=== PATIENT | female | born 1970 | race Caucasian/White ===

== ENCOUNTER → 2016-08-17 | Outpatient (CLI) | payer BC ==
[~2016-08-17] MED LIST: ACET-1311 PO
[2016-08-17 19:14] LABS: FERRITIN 117.1 ng/ml (8.0-388.0)
== END | disposition home or self-care (01) ==
LOC: C.LAB 16:42
DX: K90.9 Intestinal malabsorption, unspecified (principal)

== ENCOUNTER → 2017-04-03 | Outpatient (CLI) | payer BC ==
--- NOTE | 2017-04-04 08:12 | MAMMOGRAPHY REPORT ---
BILATERAL DIGITAL SCREENING MAMMOGRAM TOMOSYNTHESIS WITH CAD: 04/03/2017 CLINICAL HISTORY: Routine screening. Patient has no complaints. TECHNIQUE: Breast tomosynthesis in addition to standard 2D mammography was performed. Current study was also evaluated with a Computer Aided Detection (CAD) system. COMPARISON: Comparison is made to exams dated: 10/01/2015 mammogram, 03/11/2014 mammogram, 03/11/2014 ul trasound, 02/23/2014 mammogram, 12/23/2012 mammogram, and 05/04/2011 mammogram - [facility] enter. BREAST COMPOSITION: The tissue of both breasts is heterogeneously dense, which may obscure small mas ses. FINDINGS: There is an asymmetry in the superior posterior left breast, only seen on the MLO view, wi thout definite persistent mass on the corresponding tomosynthesis images. However, given the conspic uous nature on the 2-D mammograms, additional spot compression tomosynthesis views and possible ultra sound are recommended. No other suspicious mass, architectural distortion or cluster of microcalcifications is seen bilatera llesperanza. IMPRESSION: ACR BI-RADS CATEGORY 0: INCOMPLETE EVALUATION: NEED ADDITIONAL IMAGING EVALUATION The asymmetry in the superior posterior left breast needs additional evaluation. The patient will be called to schedule an appointment. Approximately 10% of breast cancers are not detected with mammography. A negative mammographic report should not delay biopsy if a clinically suggestive mass is present. Lory García M.D. ay/:04/03/2017 17:41:08 Retail Marketing Specialist: Alvina HARRELL(Naomie)(M), [facility] letter sent: Addl Imaging 0 BI-RADS Code: ACR BI-RADS Category 0: Incomplete Evaluation: Need Additional Imaging Evaluation
== END | disposition home or self-care (01) ==
LOC: C.MAMM 08:35
PROVIDERS: ATTEND Obstetrics & Gynecology
DX: Z12.31 Encounter for screening mammogram for malignant neoplasm of breast (principal); N64.89 Other specified disorders of breast

== ENCOUNTER → 2017-04-12 | Outpatient (CLI) | payer BC ==
--- NOTE | 2017-04-13 14:12 | MAMMOGRAPHY REPORT ---
UNILATERAL LEFT DIGITAL DIAGNOSTIC MAMMOGRAM TOMOSYNTHESIS AND TARGETED LEFT ULTRASOUND: 04/12/2017 CLINICAL HISTORY: Callback from screening mammogram for left breast asymmetry. The patient reports a family history of breast cancer in her mother and grandmother. TECHNIQUE: Breast tomosynthesis in addition to standard 2D mammography was performed. Spot compress ion left MLO and ML 2-D and tomosynthesis images were obtained. COMPARISON: Comparison is made to exams dated: 04/03/2017 mammogram, 10/01/2015 mammogram, 03/11/2014 ma mmogram, 03/11/2014 ultrasound, 02/23/2014 mammogram, and 12/23/2012 mammogram - [facility] enter. BREAST COMPOSITION: The tissue of the left breast is heterogeneously dense, which may obscure small masses. FINDINGS: The previously described asymmetry seen within the left superior posterior breast on the ML O view effaces to a baseline appearance on the additional spot compression views, without a discrete mass or architectural distortion noted in this region on the additional tomosynthesis images. Targeted ultrasound was performed of the left superior breast in the region of the mammographic asymm etry seen on one view only. Sonographically normal tissue is seen, without evidence of a mass or oth er suspicious sonographic abnormality. IMPRESSION: ACR BI-RADS CATEGORY 2: BENIGN, TARGETED ULTRASOUND ACR BI-RADS CATEGORY 2: BENIGN The left breast asymmetry effaces to a baseline appearance on the additional views, without correspon ding suspicious sonographic abnormality evident. Findings are benign and compatible with normal over lapping fibroglandular tissue. There is no mammographic or targeted sonographic evidence of malignan cy. A 1 year screening mammogram is recommended. The patient has been verbally notified of the resul ts. Approximately 10% of breast cancers are not detected with mammography. A negative mammographic report should not delay biopsy if a clinically suggestive mass is present. Jadyn Garcia M.D. ah/:04/12/2017 13:59:01 Swamper: Judith SCHAEFER)(Sal), [facility] letter sent: Normal 1/2 BI-RADS Code: ACR BI-RADS Category 2: Benign Ultrasound BI-RADS: ACR BI-RADS Category 2: Benign
== END | disposition home or self-care (01) ==
LOC: C.MAMM 13:35
PROVIDERS: ATTEND Obstetrics & Gynecology
DX: R92.2 Inconclusive mammogram (principal); Z80.3 Family history of malignant neoplasm of breast

== ENCOUNTER → 2017-04-12 | Outpatient (CLI) | payer BC | END | disposition home or self-care (01) | LOC: C.PAPS 14:54 | PROVIDERS: ATTEND Obstetrics & Gynecology | DX: Z01.419 Encounter for gynecological examination (general) (routine) without abnormal findings (principal) ==

== ENCOUNTER → 2017-04-12 | Outpatient (CLI) | payer BC ==
[2017-04-12 16:03] LABS: PROLACTIN 5.62 ng/mL
== END | disposition home or self-care (01) ==
LOC: C.LAB 14:08
PROVIDERS: ATTEND Obstetrics & Gynecology
DX: N92.0 Excessive and frequent menstruation with regular cycle (principal); N92.5 Other specified irregular menstruation